=== PATIENT | female | born 1985 | race Caucasian/White ===

== ENCOUNTER 2017-01-14 11:55 | Day surgery (SDC) | payer OTHER ==
[~2017-01-14] VITALS: Ht 172.7 cm; Wt 86.1 kg
[~2017-01-14 11:55] MED LIST: ASPIRIN325 MG PO; CLARITIN-D 21 TABLET PO; DICLEGIS DR 101 EACH PO; INDERAL80 MG PO; LOESTRIN FE 1.1 EACH PO; MAXALT10 MG PO; MOTRIN800 MG PO; MULTI-VITAMIN1 EAC3 PO; MULTIPLE VITAM1 EACH PO; NASONEX17 GM BOTH NARES; PRENATAL TABLE1 EAC3 PO; PROBIOTIC1 EAC1 PO; PROTONIX40 MG PO; RANITIDINE HCL150 M1 PO; REGLAN10 MG PO; TYLENOL WITH C1 EACH PO; XYZAL5 MG PO; YAZ1 TABLET PO; ZOFRAN ODT4 MG PO
[2017-01-14 12:21] VITALS: BP 110/77
[2017-01-14 12:26] LABS: POINT-OF-CARE METER ID UU13113694
[2017-01-14 12:35] LABS: MCV 87.1 FL (83-99)
[2017-01-14 15:54] VITALS: BP 121/64
[2017-01-14 16:45] VITALS: BP 121/66
== END 2017-01-14 16:50 | disposition home or self-care (01) ==
LOC: SDC 11:55
PROVIDERS: Otolaryngology
DX: J32.4 Chronic pansinusitis (principal); J34.3 Hypertrophy of nasal turbinates; I10 Essential (primary) hypertension; J45.909 Unspecified asthma, uncomplicated
CPT/HCPCS: 82948; 85014; 85018; J0131; J0171; J0330; J2250; J2405; J2550; J2765; J3010

== ENCOUNTER 2017-04-30 18:31 | Emergency (ER) | payer OTHER ==
[~2017-04-30] VITALS: Ht 172.7 cm; Wt 95.0 kg
[2017-04-30] MEDS ORDERED: NORCO 5/3251 TABLET PO (19:27)
[2017-04-30 19:39] VITALS: BP 143/71
== END 2017-04-30 19:39 | disposition home or self-care (01) ==
LOC: EME 18:31
DX: S60.222A Contusion of left hand, initial encounter (principal); S63.502A Unspecified sprain of left wrist, initial encounter; W01.198A Fall on same level from slipping, tripping and stumbling with subsequent striking against other object, initial encounter; W23.0XXA Caught, crushed, jammed, or pinched between moving objects, initial encounter; Y99.0 Civilian activity done for income or pay; Y92.238 Other place in hospital as the place of occurrence of the external cause; Z88.5 Allergy status to narcotic agent; Z88.1 Allergy status to other antibiotic agents; Z88.8 Allergy status to other drugs, medicaments and biological substances
CPT/HCPCS: 73110; 73130; 99281; 99284

== ENCOUNTER 2017-07-17 10:14 | Day surgery (SDC) | payer OTHER ==
[~2017-07-17] VITALS: Ht 172.7 cm; Wt 102.5 kg
[~2017-07-17 10:14] MED LIST changes: +BUSPAR5 MG PO; +NORCO 5/3251 TABLET PO; +TRAZODONE HCL50 MG PO
[2017-07-17 10:45] VITALS: BP 110/78
[2017-07-17] MEDS ORDERED: TYLENOL WITH C1 EACH PO (13:19)
[2017-07-17 15:35] VITALS: BP 113/68
[2017-07-17] MEDS ORDERED: ZOFRAN4 MG PO (16:41)
[2017-07-17 16:42] VITALS: BP 131/59
== END 2017-07-17 16:50 | disposition home or self-care (01) ==
LOC: SDC 10:14
DX: K81.1 Chronic cholecystitis (principal); K82.4 Cholesterolosis of gallbladder; R10.32 Left lower quadrant pain; N83.202 Unspecified ovarian cyst, left side; N83.201 Unspecified ovarian cyst, right side; K21.9 Gastro-esophageal reflux disease without esophagitis; J45.909 Unspecified asthma, uncomplicated; I25.10 Atherosclerotic heart disease of native coronary artery without angina pectoris; I34.1 Nonrheumatic mitral (valve) prolapse; F41.1 Generalized anxiety disorder; G43.909 Migraine, unspecified, not intractable, without status migrainosus; Z88.5 Allergy status to narcotic agent; Z88.1 Allergy status to other antibiotic agents; Z88.8 Allergy status to other drugs, medicaments and biological substances; Z80.7 Family history of other malignant neoplasms of lymphoid, hematopoietic and related tissues; Z82.49 Family history of ischemic heart disease and other diseases of the circulatory system; Z83.49 Family history of other endocrine, nutritional and metabolic diseases
CPT/HCPCS: 74300; 88304; C1769; J0131; J0330; J1100; J1170; J2175; J2250; J2405; J2550; J3010; Q0175; S0020; S0074